=== PATIENT | male | born 1965 | race Caucasian/White ===

== ENCOUNTER 2017-07-02 06:59 | Outpatient (CLI) | payer BC ==
[~2017-07-02] VITALS: Ht 177.8 cm; Wt 93.0 kg
[~2017-07-02 06:59] MED LIST: ASPI1TAB PO; INSUHUMDS SC; LIPI10TA PO; LISI-538 PO; VITA1CAP7 PO
[2017-07-02] MEDS ORDERED: PROPOFOL 200 MG/20 ML VIAL As Ordered ONE (07:13)
[2017-07-02] MEDS ORDERED: LIDOCAINE 2% INJ 100 MG/5 ML SDV (FOR ANES.) As Ordered ONE (07:47)
[2017-07-02] MEDS ORDERED: NS 1,000 ML IV ONE (08:00)
--- NOTE | 2017-07-02 08:32 | ROOR ---
Patient Name: Vitaliy Stafford Procedure Date: 07/02/2017 8:03 AM Date of : 1965 Age: 52 Room: [facility] Gender: Male Note Status: Finalized Procedure: Colonoscopy Indications: Screening for colorectal malignant neoplasm Providers: Mor Hernandez Jr, MD Referring MD: ZAIDA TONY MD Requesting Provider: Medicines: Propofol per Anesthesia Complications: No immediate complications. Procedure: Pre-Anesthesia Assessment: - Prior to the procedure, a History and Physical was performed, and patient medications and allergies were reviewed. The patient is competent. The risks and benefits of the procedure and the sedation options and risks were discussed with the patient. All questions were answered and informed consent was obtained. Patient identification and proposed procedure were verified by the physician and the nurse in the pre-procedure area and in the procedure room. Mental Status Examination: alert and oriented. Airway Examination: normal oropharyngeal airway and neck mobility. Respiratory Examination: clear to auscultation. CV Examination: normal. ASA Grade Assessment: II - A patient with mild systemic disease. After reviewing the risks and benefits, the patient was deemed in satisfactory condition to undergo the procedure. The anesthesia plan was to use moderate sedation / analgesia (conscious sedation). Immediately prior to administration of medications, the patient was re-assessed for adequacy to receive sedatives. The heart rate, respiratory rate, oxygen saturations, blood pressure, adequacy of pulmonary ventilation, and response to care were monitored throughout the procedure. The physical status of the patient was re-assessed after the procedure. The Colonoscope was introduced through the anus and advanced to the cecum, identified by appendiceal orifice and ileocecal valve. The colonoscopy was performed without difficulty. The patient tolerated the procedure well. The quality of the bowel preparation was adequate and excellent. Findings: The perianal and digital rectal examinations were normal. Pertinent negatives include normal sphincter tone, no palpable rectal lesions, normal prostate (size, shape, and consistency), no anal lesion or abnormality was detected and normal stool Hemoccult. The rectum, sigmoid colon, descending colon, transverse colon, ascending colon, cecum, appendiceal orifice and ileocecal valve appeared normal. Two polyps were found in the recto-sigmoid colon and distal sigmoid colon. The polyps were diminutive in size. These polyps were removed with a jumbo cold forceps. Resection and retrieval were complete. Impression: - The rectum, sigmoid colon, descending colon, transverse colon, ascending colon, cecum, appendiceal orifice and ileocecal valve are normal. - Two diminutive polyps at the recto-sigmoid colon and in the distal sigmoid colon, removed with a jumbo cold forceps. Resected and retrieved. Recommendation: - Discharge patient to home (ambulatory). - Repeat colonoscopy in 5-10 years for surveillance based on pathology results. Mor Hernandez MD Mor Hernandez Jr, MD 07/02/2017 8:31:43 AM This report has been signed electronically. Number of Addenda: 0 Note Initiated On: 07/02/2017 8:03 AM Estimated Blood Loss: Estimated blood loss: none.
[2017-07-02 08:50] VITALS: BP 142/85
== END 2017-07-02 09:02 | disposition home or self-care (01) ==
LOC: M OPP 06:59
PROVIDERS: ATTEND Surgery
DX: Z12.11 Encounter for screening for malignant neoplasm of colon (principal); K63.5 Polyp of colon; I10 Essential (primary) hypertension; E78.5 Hyperlipidemia, unspecified; E10.9 Type 1 diabetes mellitus without complications; Z96.41 Presence of insulin pump (external) (internal); Z79.82 Long term (current) use of aspirin; Z79.899 Other long term (current) drug therapy; Z83.71 Family history of colonic polyps; Z80.52 Family history of malignant neoplasm of bladder

== ENCOUNTER → 2019-07-01 | Outpatient (CLI) | payer BC ==
[~2019-07-01] MED LIST changes: -ASPI1TAB PO; +ASPI81TA26 PO; +D-3-50003 PO; -VITA1CAP7 PO
[2019-07-01 08:16] LABS: HEMATOCRIT 45.1 % (42.0-52.0); HEMOGLOBIN 15.7 g/dl (13.5-17.5); MEAN CORPUSCULAR HEMOGLOBIN 29.9 pg (27.0-33.0); MEAN CORPUSCULAR HGB CONC 34.8 g/dl (32.0-36.5); MEAN CORPUSCULAR VOLUME 85.9 fl (80.0-96.0); PLATELET COUNT, AUTOMATED 203 10^3/uL (150-450); RED BLOOD COUNT 5.25 10^6/uL (4.30-6.10); WHITE BLOOD COUNT 4.8 10^3/uL (4.0-10.0)
[2019-07-01 08:45] LABS: ALBUMIN 3.8 GM/DL (3.2-5.2); ALT/SGPT 19 U/L (12-78); BILIRUBIN,TOTAL 1.4 MG/DL (0.2-1.0); BLOOD UREA NITROGEN 15 MG/DL (7-18); CALCIUM LEVEL 8.9 MG/DL (8.5-10.1); CARBON DIOXIDE LEVEL 29 MEQ/L (21-32); CHLORIDE LEVEL 107 MEQ/L (98-107); CHOLESTEROL LEVEL 167 MG/DL (<200); CHOLESTEROL RISK RATIO 1.964 (<5); CREATININE FOR GFR 1.08 MG/DL (0.70-1.30); GLOMERULAR FILTRATION RATE > 60.0 (>56); GLUCOSE, FASTING 192 MG/DL (70-100); HDL CHOLESTEROL 85 MG/DL (>40); LDL CHOLESTEROL 73 MG/DL (<100); NON-HDL-C 82 MG/DL; POTASSIUM SERUM 4.6 MEQ/L (3.5-5.1); SODIUM LEVEL 141 MEQ/L (136-145); TOTAL PROTEIN 6.9 GM/DL (6.4-8.2); TRIGLYCERIDES LEVEL 47 MG/DL (<150)
[2019-07-01 08:55] LABS: MALB URINE SIEMENS 17.5 MG/L; MAU/CREAT RATIO 8.2 MCG/MG (0.0-30.0)
[2019-07-01 09:03] LABS: TOTAL 25(OH) VITAMIN D 26.4 NG/ML (30.0-100.0)
== END ==
LOC: M LAB 07:33
PROVIDERS: ATTEND Internal Medicine Endocrinology, Diabetes & Metabolism
DX: E10.65 Type 1 diabetes mellitus with hyperglycemia (principal)

== ENCOUNTER → 2020-08-21 | Outpatient (REF) | payer BC ==
[2020-08-21 18:51] LABS: MALB URINE SIEMENS 5.9 MG/L; MAU/CREAT RATIO 4.3 MCG/MG (0.0-30.0)
== END ==
LOC: M LAB REF 17:05
PROVIDERS: ATTEND Internal Medicine Endocrinology, Diabetes & Metabolism
DX: E10.65 Type 1 diabetes mellitus with hyperglycemia (principal)

== ENCOUNTER → 2020-11-12 | Outpatient (CLI) | payer BC ==
[~2020-11-12] MED LIST changes: -LISI-538 PO; +LISI20TA33 PO
[2020-11-12 08:56] LABS: ALBUMIN 3.8 GM/DL (3.2-5.2); ALT/SGPT 19 U/L (12-78); BILIRUBIN,TOTAL 1.9 MG/DL (0.2-1.0); BLOOD UREA NITROGEN 23 MG/DL (7-18); CALCIUM LEVEL 9.2 MG/DL (8.5-10.1); CARBON DIOXIDE LEVEL 29 MEQ/L (21-32); CHLORIDE LEVEL 106 MEQ/L (98-107); CHOLESTEROL LEVEL 183 MG/DL (<200); CREATININE FOR GFR 1.01 MG/DL (0.70-1.30); GLOMERULAR FILTRATION RATE > 60.0 (>56); GLUCOSE, FASTING 181 MG/DL (70-100); HDL CHOLESTEROL 75 MG/DL (>40); LDL CHOLESTEROL 99 MG/DL (<100); NON-HDL-C 108 MG/DL; SODIUM LEVEL 141 MEQ/L (136-145); TOTAL PROTEIN 6.7 GM/DL (6.4-8.2); TRIGLYCERIDES LEVEL 46 MG/DL (<150)
[2020-11-12 11:16] LABS: TOTAL 25(OH) VITAMIN D 54.8 NG/ML (30.0-100.0)
== END ==
LOC: M LAB 07:22
PROVIDERS: ATTEND Internal Medicine Endocrinology, Diabetes & Metabolism
DX: E10.65 Type 1 diabetes mellitus with hyperglycemia (principal); E55.9 Vitamin D deficiency, unspecified
CPT/HCPCS: 36415; 80053; 80061; 82306; G0103

== ENCOUNTER → 2021-07-15 | Outpatient (REF) | payer BC ==
[2021-07-15 19:49] LABS: MALB URINE SIEMENS 10.2 MG/L; MAU/CREAT RATIO 4.6 MCG/MG (0.0-30.0)
== END ==
LOC: M LAB REF 17:46
PROVIDERS: ATTEND Internal Medicine Endocrinology, Diabetes & Metabolism
DX: E10.65 Type 1 diabetes mellitus with hyperglycemia (principal)

== ENCOUNTER → 2021-09-13 | Outpatient (REF) | LOC: M LABSMTC 11:42 | PROVIDERS: ATTEND Pediatrics | DX: Z20.828 Contact with and (suspected) exposure to other viral communicable diseases (principal) ==

== ENCOUNTER → 2022-01-22 | Outpatient (CLI) | payer OTHER ==
[2022-01-22 09:28] LABS: HEMATOCRIT 45.9 % (42.0-52.0); MEAN CORPUSCULAR HEMOGLOBIN 29.7 pg (27.0-33.0); MEAN CORPUSCULAR HGB CONC 34.9 g/dl (32.0-36.5); MEAN CORPUSCULAR VOLUME 85.3 fl (80.0-96.0); PLATELET COUNT, AUTOMATED 219 10^3/uL (150-450); RED BLOOD COUNT 5.38 10^6/uL (4.30-6.10); WHITE BLOOD COUNT 5.3 10^3/uL (4.0-10.0)
[2022-01-22 09:52] LABS: ALBUMIN 3.8 GM/DL (3.2-5.2); ALT/SGPT 18 U/L (12-78); BLOOD UREA NITROGEN 18 MG/DL (7-18); CALCIUM LEVEL 9.8 MG/DL (8.5-10.1); CARBON DIOXIDE LEVEL 29 MEQ/L (21-32); CHLORIDE LEVEL 108 MEQ/L (98-107); CHOLESTEROL LEVEL 179 MG/DL (<200); CHOLESTEROL RISK RATIO 2.265 (<5); CREATININE FOR GFR 0.92 MG/DL (0.70-1.30); GLOMERULAR FILTRATION RATE > 60.0 (>56); GLUCOSE, FASTING 161 MG/DL (70-100); HDL CHOLESTEROL 79 MG/DL (>40); LDL CHOLESTEROL 91 MG/DL (<100); NON-HDL-C 100 MG/DL; POTASSIUM SERUM 5.4 MEQ/L (3.5-5.1); SODIUM LEVEL 140 MEQ/L (136-145); TOTAL PROTEIN 6.7 GM/DL (6.4-8.2); TRIGLYCERIDES LEVEL 47 MG/DL (<150)
[2022-01-22 09:58] LABS: MALB URINE SIEMENS 9.4 MG/L; MAU/CREAT RATIO 5.3 MCG/MG (0.0-30.0)
== END ==
LOC: M LAB 09:03
PROVIDERS: ATTEND Internal Medicine Endocrinology, Diabetes & Metabolism
DX: E10.65 Type 1 diabetes mellitus with hyperglycemia (principal)

== ENCOUNTER → 2022-06-18 | Outpatient (CLI) | payer OTHER | LOC: M LAB 16:49 → M RAD 16:49 | PROVIDERS: ATTEND Internal Medicine Endocrinology, Diabetes & Metabolism | DX: M94.0 Chondrocostal junction syndrome [Tietze] (principal) ==

== ENCOUNTER → 2022-09-07 | Outpatient (CLI) | payer OTHER ==
[~2022-09-07] MED LIST changes: +CHOL50003 PO
== END ==
LOC: M LABSMTC 09:54
PROVIDERS: ATTEND Anesthesiology
DX: Z01.812 Encounter for preprocedural laboratory examination (principal); Z20.822 Contact with and (suspected) exposure to COVID-19

== ENCOUNTER 2022-09-11 07:04 | Day surgery (SDC) | payer OTHER ==
[~2022-09-11] VITALS: Ht 177.8 cm; Wt 96.2 kg
[~2022-09-11 07:04] MED LIST changes: +NS 1,000 ML IV ONE
[2022-09-11] MEDS ORDERED: SIMETHICONE 40MG/0.6ML DROPS 30ML As Ordered ONE (07:07)
[2022-09-11] MEDS ORDERED: LIDOCAINE 2% 100MG/5ML SDV (FOR ANES.) As Ordered ONE (07:51)
[2022-09-11] MEDS ORDERED: MIDAZOLAM INJ 2MG/2ML VIAL (J2250 PER 1MG) As Ordered ONE (07:51)
[2022-09-11] MEDS ORDERED: propofoL 200 MG/20 ML VIAL As Ordered ONE ×2 (07:51→07:59)
[2022-09-11 08:30] VITALS: BP 132/75
== END 2022-09-11 08:50 | disposition home or self-care (01) ==
LOC: M OPP 07:04
PROVIDERS: ATTEND Surgery
DX: Z12.11 Encounter for screening for malignant neoplasm of colon (principal); Z86.010 Personal history of colon polyps; Z80.0 Family history of malignant neoplasm of digestive organs; D12.6 Benign neoplasm of colon, unspecified; Z79.02 Long term (current) use of antithrombotics/antiplatelets; Z79.4 Long term (current) use of insulin; Z79.82 Long term (current) use of aspirin; Z79.899 Other long term (current) drug therapy; I10 Essential (primary) hypertension; E11.9 Type 2 diabetes mellitus without complications; E78.00 Pure hypercholesterolemia, unspecified; Z80.52 Family history of malignant neoplasm of bladder; Z83.71 Family history of colonic polyps
CPT/HCPCS: 45385; 88305; J2250

== ENCOUNTER → 2023-03-12 | Outpatient (CLI) | payer OTHER ==
[~2023-03-12] MED LIST changes: -NS 1,000 ML IV ONE
== END ==
LOC: M SOG 15:36
PROVIDERS: ATTEND Orthopaedic Surgery Hand Surgery
DX: M25.522 Pain in left elbow (principal)

== ENCOUNTER 2023-03-22 19:17 | Inpatient (IN) | payer OTHER ==
[~2023-03-22] VITALS: Ht 172.7 cm; Wt 95.3 kg
[2023-03-22] MEDS ORDERED: KETO10TAB PO (19:29)
[2023-03-22 20:06] LABS: BASO % 0.4 % (0.0-1.0); EOS # 0.1 10^3/uL (0.0-0.5); EOS % 0.4 % (0.0-3.0); HEMOGLOBIN 15.7 g/dl (13.5-17.5); LYMPH # 1.7 10^3/uL (1.5-5.0); MEAN CORPUSCULAR HEMOGLOBIN 29.9 pg (27.0-33.0); MEAN CORPUSCULAR HGB CONC 34.9 g/dl (32.0-36.5); MEAN CORPUSCULAR VOLUME 85.7 fl (80.0-96.0); MONO # 1.2 10^3/uL (0.0-0.8); MONO % 11.1 % (2.0-8.0); NEUTROPHILS # 8.2 10^3/uL (1.5-8.5); NEUTROPHILS % 72.8 % (36.0-66.0); PLATELET COUNT, AUTOMATED 226 10^3/uL (150-450); RED BLOOD COUNT 5.25 10^6/uL (4.30-6.10); WHITE BLOOD COUNT 11.2 10^3/uL (4.0-10.0)
[2023-03-22 20:14] LABS: ERYTHROCYTE SEDIMENTATION RATE 2 mm/hr (0-20)
[2023-03-22 20:24] LABS: ALKALINE PHOSPHATASE 57 U/L (46-116); ALT/SGPT 18 U/L (7.0-40); AST/SGOT 20 U/L (<34); BILIRUBIN,TOTAL 2.2 MG/DL (0.3-1.2); BLOOD UREA NITROGEN 18 MG/DL (9-23); CALCIUM LEVEL 9.7 MG/DL (8.5-10.1); CARBON DIOXIDE LEVEL 30 MMOL/L (20-31); CHLORIDE LEVEL 105 MMOL/L (98-107); CREATININE FOR GFR 0.87 MG/DL (0.70-1.30); GLOMERULAR FILTRATION RATE > 60.0 (>56); GLUCOSE, FASTING 197 MG/DL (60-100); POTASSIUM SERUM 5.2 MMOL/L (3.5-5.1); SODIUM LEVEL 139 MMOL/L (136-145)
[2023-03-22] MEDS ORDERED: ONDANSETRON 4MG 2ML VIAL IV ONE (20:25)
[2023-03-22] MEDS: MORPHINE 4 MG/ML 1ML VIAL IV PRN ×2 (20:33→22:28)
[2023-03-22 21:23] LABS: RSV AMPLIFICATION NEGATIVE (NEGATIVE)
[2023-03-22] MEDS ORDERED: LIDOCAINE 2% MDV 20ML VIAL SC ONE (21:40)
[2023-03-22] MEDS ORDERED: VANCOMYCIN HCL 2,000 MG in IV FLUID PLACE HOLDER 1 EA IV ONE (23:10)
[2023-03-22] MEDS ORDERED: HOME MED LIST COMPLETE! XX SCH (23:55)
[2023-03-22] MEDS ORDERED: DEXTROSE 50% 50ML SYRINGE IV PRN (23:55)
[2023-03-22] MEDS ORDERED: GLUCAGON INJ 1MG VIAL SC PRN (23:55)
[2023-03-22] MEDS ORDERED: GLUCOSE 4GM CHEW TABLET PO PRN (23:55)
[2023-03-23] MEDS ORDERED: VANCOMYCIN HCL 1,000 MG, VIAL MATE ADAPTER 1 EACH in D5W 250 ML IV ONE ×6
[2023-03-23] MEDS ORDERED: INSULIN LISPRO (NovoLOG) PER UNIT SC SCH (00:05)
[2023-03-23] MEDS: NS 1,000 ML IV SCH ×2 (00:42→09:06)
[2023-03-23] MEDS ORDERED: KETOROLAC 30 MG/ML 1ML VIAL IV ONE (01:00)
[2023-03-23 01:32] VITALS: BP 155/72; TEMP 98.4; O2SAT 100
[2023-03-23] MEDS ORDERED: ONDANSETRON 4MG 2ML VIAL IV PRN (03:00)
[2023-03-23] MEDS: PERCOCET 5MG/325MG TAB PO PRN ×3 (05:18→18:29)
[2023-03-23 05:28] VITALS: BP 120/69; TEMP 97.9; O2SAT 95
[2023-03-23 06:05] LABS: HEMATOCRIT 41.8 % (42.0-52.0); HEMOGLOBIN 14.4 g/dl (13.5-17.5); MEAN CORPUSCULAR HEMOGLOBIN 29.4 pg (27.0-33.0); MEAN CORPUSCULAR HGB CONC 34.4 g/dl (32.0-36.5); MEAN CORPUSCULAR VOLUME 85.5 fl (80.0-96.0); PLATELET COUNT, AUTOMATED 178 10^3/uL (150-450); RED BLOOD COUNT 4.89 10^6/uL (4.30-6.10); WHITE BLOOD COUNT 8.6 10^3/uL (4.0-10.0)
[2023-03-23 06:28] LABS: ALBUMIN 3.3 G/DL (3.2-5.2); ALKALINE PHOSPHATASE 47 U/L (46-116); ALT/SGPT 18 U/L (7.0-40); AST/SGOT < 8 U/L (<34); BILIRUBIN,TOTAL 2.6 MG/DL (0.3-1.2); BLOOD UREA NITROGEN 18 MG/DL (9-23); CALCIUM LEVEL 8.3 MG/DL (8.5-10.1); CARBON DIOXIDE LEVEL 28 MMOL/L (20-31); CHLORIDE LEVEL 107 MMOL/L (98-107); CREATININE FOR GFR 0.76 MG/DL (0.70-1.30); GLOMERULAR FILTRATION RATE > 60.0 (>56); GLUCOSE, FASTING 130 MG/DL (60-100); POTASSIUM SERUM 4.1 MMOL/L (3.5-5.1); SODIUM LEVEL 140 MMOL/L (136-145); TOTAL PROTEIN 5.7 G/DL (5.7-8.2)
[2023-03-23 07:41] LABS: HEMOGLOBIN A1c 6.7 % (4.0-6.0)
[2023-03-23] MEDS ORDERED: ENOXAPARIN 40MG/0.4ML SYRINGE (J1650 PER 10MG) SC SCH (09:00)
[2023-03-23] MEDS: ASPIRIN 81MG ENTERIC TABLET PO SCH (09:03)
[2023-03-23] MEDS: ATORVASTATIN 10 MG TAB PO SCH (09:05)
[2023-03-23] MEDS: VANCOMYCIN HCL 1,000 MG, VIAL MATE ADAPTER 1 EACH in D5W 250 ML IV SCH ×2 (09:06→16:37)
[2023-03-23 14:00] VITALS: BP 147/71; TEMP 98.8; O2SAT 98
[2023-03-23] MEDS: ACETAMINOPHEN TAB 650MG DOSE (2X325MG) PO PRN ×2 (16:43→21:26)
[2023-03-23 20:05] VITALS: BP 144/74; TEMP 98.2; O2SAT 99
[2023-03-23] MEDS: MORPHINE 2 MG/ML 1ML VIAL IV PRN (23:44)
[2023-03-24] MEDS: VANCOMYCIN HCL 1,000 MG, VIAL MATE ADAPTER 1 EACH in D5W 250 ML IV SCH (00:30)
[2023-03-24] MEDS: VANCOMYCIN HCL 750 MG, VIAL MATE ADAPTER 1 EACH in D5W 250 ML IV SCH ×2 (05:08→14:19)
[2023-03-24 05:15] VITALS: BP 143/74; TEMP 97.9; O2SAT 98
[2023-03-24] MEDS: MORPHINE 2 MG/ML 1ML VIAL IV PRN (05:16)
[2023-03-24] MEDS: VANCOMYCIN HCL 500 MG in D5W MINI-BAG PLUS 100 ML IV SCH ×2 (06:25→17:12)
[2023-03-24 07:31] LABS: HEMATOCRIT 41.8 % (42.0-52.0); HEMOGLOBIN 14.7 g/dl (13.5-17.5); MEAN CORPUSCULAR HEMOGLOBIN 29.9 pg (27.0-33.0); MEAN CORPUSCULAR HGB CONC 35.2 g/dl (32.0-36.5); PLATELET COUNT, AUTOMATED 171 10^3/uL (150-450); RED BLOOD COUNT 4.92 10^6/uL (4.30-6.10); WHITE BLOOD COUNT 8.4 10^3/uL (4.0-10.0)
[2023-03-24] MEDS ORDERED: MORPHINE 2 MG/ML 1ML VIAL IV PRN (08:20)
[2023-03-24 08:22] LABS: BLOOD UREA NITROGEN 17 MG/DL (9-23); CARBON DIOXIDE LEVEL 26 MMOL/L (20-31); CHLORIDE LEVEL 103 MMOL/L (98-107); CREATININE FOR GFR 0.74 MG/DL (0.70-1.30); GLOMERULAR FILTRATION RATE > 60.0 (>56); GLUCOSE, FASTING 200 MG/DL (60-100); POTASSIUM SERUM 4.1 MMOL/L (3.5-5.1); SODIUM LEVEL 136 MMOL/L (136-145)
[2023-03-24] MEDS: KETOROLAC 30 MG/ML 1ML VIAL IV SCH ×4 (09:00→21:16)
[2023-03-24] MEDS: ACETAMINOPHEN TAB 650MG DOSE (2X325MG) PO SCH ×4 (10:12→21:15)
[2023-03-24] MEDS: ATORVASTATIN 10 MG TAB PO SCH (10:12)
[2023-03-24] MEDS: oxyCODONE 5MG TAB PO PRN (11:11)
[2023-03-24 14:00] VITALS: BP 145/74; TEMP 98.2; O2SAT 96
[2023-03-24 20:05] VITALS: BP 126/66; TEMP 98.2; O2SAT 96
[2023-03-25] MEDS: ACETAMINOPHEN TAB 650MG DOSE (2X325MG) PO SCH ×6 (00:50→21:32)
[2023-03-25] MEDS ORDERED: VANCOMYCIN HCL 1,000 MG, VIAL MATE ADAPTER 1 EACH in D5W 250 ML IV SCH (01:00)
[2023-03-25] MEDS: KETOROLAC 30 MG/ML 1ML VIAL IV SCH (03:45)
[2023-03-25 05:07] VITALS: BP 125/65; TEMP 97.7; O2SAT 96
[2023-03-25 06:12] LABS: HEMATOCRIT 42.1 % (42.0-52.0); HEMOGLOBIN 14.8 g/dl (13.5-17.5); MEAN CORPUSCULAR HEMOGLOBIN 30.2 pg (27.0-33.0); MEAN CORPUSCULAR HGB CONC 35.2 g/dl (32.0-36.5); MEAN CORPUSCULAR VOLUME 85.9 fl (80.0-96.0); PLATELET COUNT, AUTOMATED 179 10^3/uL (150-450); WHITE BLOOD COUNT 6.9 10^3/uL (4.0-10.0)
[2023-03-25 06:37] LABS: BLOOD UREA NITROGEN 17 MG/DL (9-23); CALCIUM LEVEL 9.2 MG/DL (8.5-10.1); CARBON DIOXIDE LEVEL 28 MMOL/L (20-31); CHLORIDE LEVEL 104 MMOL/L (98-107); CREATININE FOR GFR 0.78 MG/DL (0.70-1.30); GLOMERULAR FILTRATION RATE > 60.0 (>56); GLUCOSE, FASTING 111 MG/DL (60-100); SODIUM LEVEL 138 MMOL/L (136-145)
[2023-03-25] MEDS: ASPIRIN 81MG ENTERIC TABLET PO SCH (08:30)
[2023-03-25] MEDS: ATORVASTATIN 10 MG TAB PO SCH (09:44)
[2023-03-25] MEDS: cefTRIAXone SOD 2 GM in D5W MINI-BAG PLUS 50 ML IV SCH (09:47)
[2023-03-25] MEDS: DOCUSATE SODIUM 100MG CAPSULE PO SCH ×2 (13:05→21:32)
[2023-03-25] MEDS: oxyCODONE 5MG TAB PO PRN (13:15)
[2023-03-25 14:00] VITALS: BP 158/85; TEMP 98.2; O2SAT 100
[2023-03-25] MEDS ORDERED: fentaNYL 100 MCG/2 ML INJECTION As Ordered ONE (16:07)
[2023-03-25] MEDS ORDERED: MIDAZOLAM INJ 2MG/2ML VIAL As Ordered ONE (16:08)
[2023-03-25] MEDS ORDERED: ACETAMINOPHEN 1000MG 100ML IV BAG As Ordered ONE (16:08)
[2023-03-25] MEDS ORDERED: propofoL 200 MG/20 ML VIAL As Ordered ONE (16:09)
[2023-03-25] MEDS ORDERED: LIDOCAINE 2% 100MG/5ML SDV (FOR ANES.) As Ordered ONE (16:09)
[2023-03-25] MEDS ORDERED: ONDANSETRON 4MG 2ML VIAL As Ordered ONE (16:13)
[2023-03-25] MEDS ORDERED: TRANEXAMIC ACID 100 MG/ML 10ML VIAL As Ordered ONE (18:29)
[2023-03-25] MEDS ORDERED: ONDANSETRON 4MG 2ML VIAL IV PRN (19:35)
[2023-03-25] MEDS ORDERED: oxyCODONE 5MG TAB PO PRN (19:35)
[2023-03-25] MEDS ORDERED: fentaNYL 100 MCG/2 ML INJECTION IV PRN (19:35)
[2023-03-25 19:45] LABS: SOURCE, BODY FLUID RT KNEE; SYNOVIAL FLUID COLOR YELLOW (COLORLESS)
[2023-03-25] MEDS ORDERED: KETOROLAC 60MG 2ML VIAL As Ordered ONE (19:45)
[2023-03-25] MEDS: MORPHINE 2 MG/ML 1ML VIAL IV PRN ×2 (20:16→20:27)
[2023-03-25] MEDS: MEPERIDINE 25 MG/ML 1ML VIAL IV PRN ×2 (20:17→20:22)
[2023-03-25] MEDS ORDERED: MEPERIDINE 25 MG/ML 1ML VIAL As Ordered ONE (20:18)
[2023-03-25 21:01] VITALS: BP 136/78; TEMP 97.9; O2SAT 98
[2023-03-25 21:25] VITALS: BP 156/82; TEMP 98.2; O2SAT 95
[2023-03-25 22:28] VITALS: BP 162/89; TEMP 98.1; O2SAT 95
[2023-03-25] MEDS: KETOROLAC 30 MG/ML 1ML VIAL IV PRN (22:37)
[2023-03-25 23:30] VITALS: BP 131/65; TEMP 97.7; O2SAT 95
[2023-03-26] MEDS: ACETAMINOPHEN TAB 650MG DOSE (2X325MG) PO SCH ×6 (00:55→20:51)
[2023-03-26 02:02] VITALS: BP 130/66; TEMP 97.3; O2SAT 97
[2023-03-26] MEDS: KETOROLAC 30 MG/ML 1ML VIAL IV PRN ×3 (05:53→23:41)
[2023-03-26 05:56] VITALS: BP 137/75; TEMP 98.1; O2SAT 97
[2023-03-26 06:25] LABS: HEMATOCRIT 41.1 % (42.0-52.0); HEMOGLOBIN 14.3 g/dl (13.5-17.5); MEAN CORPUSCULAR HGB CONC 34.8 g/dl (32.0-36.5); MEAN CORPUSCULAR VOLUME 86.2 fl (80.0-96.0); PLATELET COUNT, AUTOMATED 137 10^3/uL (150-450); RED BLOOD COUNT 4.77 10^6/uL (4.30-6.10); WHITE BLOOD COUNT 5.7 10^3/uL (4.0-10.0)
[2023-03-26 06:43] LABS: BLOOD UREA NITROGEN 18 MG/DL (9-23); CALCIUM LEVEL 8.2 MG/DL (8.5-10.1); CARBON DIOXIDE LEVEL 24 MMOL/L (20-31); CHLORIDE LEVEL 106 MMOL/L (98-107); CREATININE FOR GFR 0.72 MG/DL (0.70-1.30); GLOMERULAR FILTRATION RATE > 60.0 (>56); GLUCOSE, FASTING 192 MG/DL (60-100); POTASSIUM SERUM 4.8 MMOL/L (3.5-5.1); SODIUM LEVEL 137 MMOL/L (136-145)
[2023-03-26] MEDS: cefTRIAXone SOD 2 GM in D5W MINI-BAG PLUS 50 ML IV SCH (09:24)
[2023-03-26] MEDS: ATORVASTATIN 10 MG TAB PO SCH (09:24)
[2023-03-26] MEDS: DOCUSATE SODIUM 100MG CAPSULE PO SCH ×2 (09:25→20:51)
[2023-03-26] MEDS: MIRALAX *UNIT DOSE* 17GM PACKET PO SCH ×2 (10:15→20:51)
[2023-03-26] MEDS ORDERED: ENOXAPARIN 40MG/0.4ML SYRINGE (J1650 PER 10MG) SC ONE (10:20)
[2023-03-26 14:00] VITALS: BP 125/74; TEMP 98.1; O2SAT 97
[2023-03-26 20:44] VITALS: BP 145/87; TEMP 98.2; O2SAT 96
[2023-03-27] MEDS: ACETAMINOPHEN TAB 650MG DOSE (2X325MG) PO SCH ×6 (00:23→20:39)
[2023-03-27] MEDS: KETOROLAC 30 MG/ML 1ML VIAL IV PRN ×3 (06:16→18:40)
[2023-03-27 06:30] LABS: HEMATOCRIT 40.4 % (42.0-52.0); HEMOGLOBIN 13.9 g/dl (13.5-17.5); MEAN CORPUSCULAR HEMOGLOBIN 29.4 pg (27.0-33.0); MEAN CORPUSCULAR HGB CONC 34.4 g/dl (32.0-36.5); MEAN CORPUSCULAR VOLUME 85.6 fl (80.0-96.0); PLATELET COUNT, AUTOMATED 231 10^3/uL (150-450); RED BLOOD COUNT 4.72 10^6/uL (4.30-6.10); WHITE BLOOD COUNT 5.2 10^3/uL (4.0-10.0)
[2023-03-27 06:43] VITALS: BP 141/76; TEMP 98.1; O2SAT 97
[2023-03-27 06:46] LABS: BLOOD UREA NITROGEN 21 MG/DL (9-23); CALCIUM LEVEL 9.2 MG/DL (8.5-10.1); CARBON DIOXIDE LEVEL 29 MMOL/L (20-31); CHLORIDE LEVEL 107 MMOL/L (98-107); CREATININE FOR GFR 0.85 MG/DL (0.70-1.30); GLOMERULAR FILTRATION RATE > 60.0 (>56); GLUCOSE, FASTING 114 MG/DL (60-100); POTASSIUM SERUM 4.3 MMOL/L (3.5-5.1); SODIUM LEVEL 141 MMOL/L (136-145)
[2023-03-27] MEDS: DOCUSATE SODIUM 100MG CAPSULE PO SCH ×2 (09:00→21:00)
[2023-03-27] MEDS: ASPIRIN 81MG ENTERIC TABLET PO SCH (09:00)
[2023-03-27] MEDS: ATORVASTATIN 10 MG TAB PO SCH (09:00)
[2023-03-27] MEDS: MIRALAX *UNIT DOSE* 17GM PACKET PO SCH ×2 (09:00→21:00)
[2023-03-27] MEDS: cefTRIAXone SOD 2 GM in D5W MINI-BAG PLUS 50 ML IV SCH (09:53)
[2023-03-27] MEDS ORDERED: BOOSTRIX VACCINE (TETANUS/DIPHTH/ACEL. PERTUSSIS) 0.5ML SYR IM ONE (10:00)
[2023-03-27 14:33] LABS: CRYSTALS, BODY FLUID NONE SEEN (NONE SEEN); SOURCE, BODY FLUID CRYSTALS RT KNEE
[2023-03-27 16:00] VITALS: BP 129/75; TEMP 98.2; O2SAT 100
[2023-03-27 16:35] LABS: APPEARANCE, URINE CLEAR (CLEAR); BACTERIA, URINE AUTO NEGATIVE (NEGATIVE); BILIRUBIN, URINE AUTO NEGATIVE (NEGATIVE); BLOOD, URINE BLOOD NEGATIVE (NEGATIVE); COLOR, URINE YELLOW (YELLOW); GLUCOSE, URINE (UA) AUTO NEGATIVE (NEGATIVE); KETONE, URINE AUTO TRACE mg/dL (NEGATIVE); LEUKOCYTE ESTERASE, URINE AUTO NEGATIVE (NEGATIVE); NITRITE, URINE AUTO NEGATIVE (NEGATIVE); PROTEIN, URINE AUTO NEGATIVE (NEGATIVE); RBC, URINE AUTO 3 /HPF (0-3); SPECIFIC GRAVITY URINE AUTO 1.019 (1.002-1.035); SQUAMOUS EPITHELIAL CELL UR AU 0 /HPF (0-6); UROBILINOGEN, URINE AUTO 0.2 mg/dL (0.0-2.0); WBC, URINE AUTO 0 /HPF (0-3)
[2023-03-27 20:32] VITALS: BP 136/81; TEMP 98.4; O2SAT 99
[2023-03-28] MEDS: ACETAMINOPHEN TAB 650MG DOSE (2X325MG) PO SCH ×4 (01:00→13:53)
[2023-03-28] MEDS ORDERED: METOCLOPRAMIDE INJ 10MG/2ML VIAL As Ordered ONE (01:51)
[2023-03-28] MEDS ORDERED: fentaNYL 100 MCG/2 ML INJECTION As Ordered ONE (01:51)
[2023-03-28] MEDS ORDERED: LIDOCAINE 2% 100MG/5ML SDV (FOR ANES.) As Ordered ONE (01:51)
[2023-03-28] MEDS ORDERED: MIDAZOLAM INJ 2MG/2ML VIAL As Ordered ONE (01:51)
[2023-03-28] MEDS ORDERED: propofoL 200 MG/20 ML VIAL As Ordered ONE ×3 (01:51→02:53)
[2023-03-28] MEDS ORDERED: ONDANSETRON 4MG 2ML VIAL As Ordered ONE (01:51)
[2023-03-28] MEDS ORDERED: ONDANSETRON 4MG 2ML VIAL IV PRN (03:05)
[2023-03-28] MEDS ORDERED: fentaNYL 100 MCG/2 ML INJECTION IV PRN (03:05)
[2023-03-28] MEDS ORDERED: LR 1,000 ML IV SCH (03:05)
[2023-03-28] MEDS ORDERED: oxyCODONE 5MG TAB PO PRN (03:05)
[2023-03-28] MEDS: HYDROMORPHONE HCL 0.5 MG/ 0.5 ML SYRINGE IV PRN ×2 (03:32→03:45)
[2023-03-28 04:04] VITALS: BP 147/82; TEMP 97.2; O2SAT 98
[2023-03-28 04:30] VITALS: BP 138/80; TEMP 98; O2SAT 95
[2023-03-28 05:08] VITALS: BP 127/83; TEMP 98.1; O2SAT 98
[2023-03-28 06:41] LABS: HEMOGLOBIN 13.8 g/dl (13.5-17.5); MEAN CORPUSCULAR HEMOGLOBIN 30.4 pg (27.0-33.0); MEAN CORPUSCULAR HGB CONC 35.4 g/dl (32.0-36.5); MEAN CORPUSCULAR VOLUME 85.9 fl (80.0-96.0); PLATELET COUNT, AUTOMATED 238 10^3/uL (150-450); RED BLOOD COUNT 4.54 10^6/uL (4.30-6.10); WHITE BLOOD COUNT 6.3 10^3/uL (4.0-10.0)
[2023-03-28 06:49] VITALS: BP 132/80; TEMP 97.5; O2SAT 97
[2023-03-28 07:04] LABS: BLOOD UREA NITROGEN 19 MG/DL (9-23); CARBON DIOXIDE LEVEL 28 MMOL/L (20-31); CHLORIDE LEVEL 106 MMOL/L (98-107); CREATININE FOR GFR 0.75 MG/DL (0.70-1.30); GLOMERULAR FILTRATION RATE > 60.0 (>56); GLUCOSE, FASTING 150 MG/DL (60-100); POTASSIUM SERUM 4.5 MMOL/L (3.5-5.1); SODIUM LEVEL 139 MMOL/L (136-145)
[2023-03-28] MEDS: ATORVASTATIN 10 MG TAB PO SCH (08:19)
[2023-03-28 08:20] VITALS: BP 132/80
[2023-03-28] MEDS: MIRALAX *UNIT DOSE* 17GM PACKET PO SCH (08:20)
[2023-03-28] MEDS: cefTRIAXone SOD 2 GM in D5W MINI-BAG PLUS 50 ML IV SCH (08:20)
[2023-03-28] MEDS: DOCUSATE SODIUM 100MG CAPSULE PO SCH (08:20)
[2023-03-28] MEDS: KETOROLAC 30 MG/ML 1ML VIAL IV PRN (08:23)
[2023-03-28] MEDS ORDERED: ENOXAPARIN 40MG/0.4ML SYRINGE (J1650 PER 10MG) SC SCH (09:00)
[2023-03-28 09:22] VITALS: BP 136/77; TEMP 98.2; O2SAT 98
[2023-03-28] MEDS: CEPHALEXIN 500 MG CAP PO SCH ×2 (13:53→16:14)
[2023-03-28] MEDS ORDERED: MIRA1POW3 PO (15:08)
[2023-03-28] MEDS ORDERED: CEPH500C PO ×2 (15:08→15:42)
[2023-03-28] MEDS ORDERED: ACET1TAB55 PO (15:30)
[2023-03-28] MEDS ORDERED: IBUP-1114 PO (15:30)
[2023-03-28] MEDS ORDERED: OXYC-517 PO (15:38)
[2023-04-01 18:07] LABS: CA Oxalate Dihy 60 % (.); Ca Ox Monohydrate 40 % (.)
== END 2023-03-28 16:50 | disposition home or self-care (01) | DRG 317 ==
LOC: M ED 19:17 → M ED INP 23:11 → ENRESERV 23:34 → M MS5PR 03-23 01:27
PROVIDERS: ADMIT Internal Medicine; ATTEND Student in an Organized Health Care Education/Training Program
PROC: 0MBN0ZZ Excision of Right Knee Bursa and Ligament, Open Approach (ICD-10-PCS; principal; 2023-03-25 14:30)
DX: M70.41 Prepatellar bursitis, right knee (principal); L02.415 Cutaneous abscess of right lower limb; I10 Essential (primary) hypertension; E10.9 Type 1 diabetes mellitus without complications; N20.0 Calculus of kidney; B95.61 Methicillin susceptible Staphylococcus aureus infection as the cause of diseases classified elsewhere; L03.115 Cellulitis of right lower limb; E78.5 Hyperlipidemia, unspecified; K59.00 Constipation, unspecified; Z79.899 Other long term (current) drug therapy; Z79.82 Long term (current) use of aspirin; Z79.4 Long term (current) use of insulin

== ENCOUNTER → 2023-04-23 | Outpatient (CLI) | payer OTHER ==
[~2023-04-23] MED LIST changes: +ACET1TAB55 PO; +CEPH500C PO; +IBUP-1114 PO; +KETO10TAB PO; +MIRA1POW3 PO; +OXYC-517 PO
== END ==
LOC: M SOG 07:56
PROVIDERS: ATTEND Orthopaedic Surgery
DX: M54.2 Cervicalgia (principal)

== ENCOUNTER → 2023-05-22 | Outpatient (CLI) | payer OTHER | LOC: M SOG 13:36 | PROVIDERS: ATTEND Physician Assistant | DX: M25.561 Pain in right knee (principal) ==

== ENCOUNTER → 2023-09-05 | Outpatient (CLI) | payer OTHER ==
[2023-09-05 08:51] LABS: HEMATOCRIT 45.9 % (42.0-52.0); HEMOGLOBIN 16.1 g/dl (13.5-17.5); MEAN CORPUSCULAR HGB CONC 35.1 g/dl (32.0-36.5); MEAN CORPUSCULAR VOLUME 85.6 fl (80.0-96.0); PLATELET COUNT, AUTOMATED 212 10^3/uL (150-450); RED BLOOD COUNT 5.36 10^6/uL (4.30-6.10); WHITE BLOOD COUNT 6.3 10^3/uL (4.0-10.0)
[2023-09-05 09:18] LABS: CREATININE, URINE 176.6 MG/DL; MAU/CREAT RATIO 1.6 MCG/MG (0.0-30.0)
[2023-09-05 09:38] LABS: ALKALINE PHOSPHATASE 49 U/L (46-116); ALT/SGPT 17 U/L (7.0-40); AST/SGOT 14 U/L (<34); BILIRUBIN,TOTAL 2.1 MG/DL (0.3-1.2); BLOOD UREA NITROGEN 17 MG/DL (9-23); CALCIUM LEVEL 9.1 MG/DL (8.5-10.1); CARBON DIOXIDE LEVEL 26 MMOL/L (20-31); CHLORIDE LEVEL 109 MMOL/L (98-107); CHOLESTEROL LEVEL 191 MG/DL (<200); CHOLESTEROL RISK RATIO 2.17 (<5); CREATININE FOR GFR 0.78 MG/DL (0.70-1.30); GLOMERULAR FILTRATION RATE > 60.0 (>56); GLUCOSE, FASTING 115 MG/DL (60-100); HDL CHOLESTEROL 87.7 MG/DL (>40); LDL CHOLESTEROL 93.7 MG/DL (<100); NON-HDL-C 103.3 MG/DL; POTASSIUM SERUM 4.3 MMOL/L (3.5-5.1); PROSTATIC SPECIFIC AG MONITOR 0.85 NG/ML (< 4.00); SODIUM LEVEL 140 MMOL/L (136-145); TRIGLYCERIDES LEVEL 48 MG/DL (<150)
== END ==
LOC: M LAB 08:14
PROVIDERS: ATTEND Internal Medicine Endocrinology, Diabetes & Metabolism
DX: E10.65 Type 1 diabetes mellitus with hyperglycemia (principal)

== ENCOUNTER → 2024-12-16 | Outpatient (REF) | payer BC ==
[~2024-12-16] MED LIST changes: -MIRA1POW3 PO; +MIRA33506 PO
== END ==
LOC: M LAB REF 14:18
PROVIDERS: ATTEND Physician Assistant
DX: B34.9 Viral infection, unspecified (principal)

== ENCOUNTER → 2025-01-18 | Outpatient (CLI) | payer BC ==
[2025-01-18 07:57] LABS: ALBUMIN 3.6 G/DL (3.2-5.2); ALKALINE PHOSPHATASE 55 U/L (40-129); ALT/SGPT 24 U/L (7.0-40); AST/SGOT 22 U/L (<34); BLOOD UREA NITROGEN 18 MG/DL (9-23); CALCIUM LEVEL 8.6 MG/DL (8.5-10.1); CARBON DIOXIDE LEVEL 27 MMOL/L (20-31); CHLORIDE LEVEL 107 MMOL/L (98-107); CHOLESTEROL LEVEL 155 MG/DL (<200); CREATININE FOR GFR 0.82 MG/DL (0.70-1.30); GLOMERULAR FILTRATION RATE > 90.0 (>56); GLUCOSE, FASTING 120 MG/DL (60-100); HDL CHOLESTEROL 67.1 MG/DL (>40); LDL CHOLESTEROL 75.3 MG/DL (<100); NON-HDL-C 87.9 MG/DL; PSA SCREENING 0.96 NG/ML (< 4.00); SODIUM LEVEL 143 MMOL/L (136-145); TOTAL PROTEIN 6.5 G/DL (5.7-8.2); TRIGLYCERIDES LEVEL 63 MG/DL (<150)
[2025-01-18 08:07] LABS: CREATININE, URINE 245.5 MG/DL
== END ==
LOC: M LAB 12-12 15:31
PROVIDERS: ATTEND Internal Medicine Endocrinology, Diabetes & Metabolism
DX: N40.0 Benign prostatic hyperplasia without lower urinary tract symptoms (principal); E11.65 Type 2 diabetes mellitus with hyperglycemia; Z53.9 Procedure and treatment not carried out, unspecified reason
CPT/HCPCS: 36415; 80053; 80061; 82043; G0103